=== PATIENT | male | born 1975 ===

== ENCOUNTER 2019-12-14 08:25 | Emergency (ER) | payer SELFPAY ==
[~2019-12-14] VITALS: Ht 172.7 cm; Wt 90.0 kg
[2019-12-14 08:33] VITALS: BP 129/72
[2019-12-14] MEDS: IBUPROFEN 600 MG TABLET PO ONE ×2 (08:57→09:00)
== END 2019-12-14 09:47 | disposition home or self-care (01) ==
LOC: EMS 08:26
DX: M79.18 Myalgia, other site (principal); Z59.0 Homelessness